=== PATIENT | female | born 1945 | race Caucasian/White ===

== ENCOUNTER → 2016-08-02 | Outpatient (CLI) | payer MEDICARE ==
[~2016-08-02] MED LIST: ASPI325T PO; ENAL5TAB98 PO; GLUCTAB PO; Glucometer; LIPI20TA PO; MECL-62 PO
[2016-08-02 13:59] LABS: BLOOD, URINE NEG (NEG); GLUCOSE,URINE NEG (NEG); KETONE, URINE 10 mg/dL (NEG); NITRITE,URINE NEG (NEG); SQUAMOUS EPITHELIAL CELL URINE <1 /hpf (0-5); URINE COLOR YELLOW (YELLW/STRAW)
[2016-08-02 14:00] LABS: COMMENT (UR) CULT NOT INDICATED; CULTURE IF INDICATED CULT NOT INDICATED
[2016-08-02 14:05] LABS: ALT (GPT) 33 U/L (10-53); ANION GAP 9 MEQ/L (5-15); AST (GOT) 24 U/L (15-37); BICARBONATE 28.9 MEQ/L (21.0-32.0); BLOOD UREA NITROGEN 14 MG/DL (7-18); CHLORIDE 99 MEQ/L (98-107); GLOMERULAR FILTRATION RATE 70 ML/MIN (>89); GLUCOSE,FASTING 156 MG/DL (74-99); POTASSIUM 4.2 MEQ/L (3.5-5.1); SODIUM (NA) 137 MEQ/L (136-145)
[2016-08-02 14:20] LABS: MICRO ALBUMIN RANDOM URINE RAW 39.2 MG/L (0.0-30.0)
[2016-08-02 14:29] LABS: HEMOGLOBIN A1a 1.3 %; HEMOGLOBIN Ao 82.3 %; HEMOGLOBIN F 1.8 %; HEMOGLOBIN LA1C 2.3 %; HEMOGLOBIN P3 3.8 %
[2016-08-02 14:30] LABS: ALKALINE PHOSPHATASE 81 U/L (45-117); FREE T3 2.74 PG/ML (2.18-3.98); HDL CHOLESTEROL 63.4 MG/DL (40.0-60.0); LDL CHOLESTEROL 149 MG/DL (0-99); THYROXINE (T4) 8.7 MCG/DL (4.8-13.9); TOTAL BILIRUBIN ADULT 0.7 MG/DL (0.2-1.0)
[2016-08-06 03:49] LABS: THYROGLOB ABS LESS THAN 1 IU/mL (< OR = 1)
== END ==
LOC: PLAB 08:34
PROVIDERS: ATTEND Family Medicine
DX: E11.9 Type 2 diabetes mellitus without complications (principal); R53.83 Other fatigue
CPT/HCPCS: 36415; 80053; 80061; 81001; 82043; 82607; 82652; 82747; 83036; 84436; 84443; 84481; 86376; 86800

== ENCOUNTER → 2017-02-27 | Outpatient (CLI) | payer MEDICARE ==
[2017-02-27 09:56] LABS: HEMOGLOBIN A1a 1.7 %; HEMOGLOBIN Ao 81.6 %; HEMOGLOBIN F 1.8 %; HEMOGLOBIN LA1C 2.3 %
[2017-02-27 10:01] LABS: BLOOD, URINE NEG (NEG); COMMENT (UR) CULT NOT INDICATED; CULTURE IF INDICATED CULT NOT INDICATED; GLUCOSE,URINE NEG (NEG); KETONE, URINE NEG (NEG); MUCUS URINE FEW /lpf (OCC); NITRITE,URINE NEG (NEG); SQUAMOUS EPITHELIAL CELL URINE <1 /hpf (0-5); URINE COLOR YELLOW (YELLW/STRAW)
[2017-02-27 10:20] LABS: ANION GAP 4 MEQ/L (5-15); AST (GOT) 30 U/L (15-37); BICARBONATE 29.6 MEQ/L (21.0-32.0); BLOOD UREA NITROGEN 12 MG/DL (7-18); CHLORIDE 99 MEQ/L (98-107); GLUCOSE,FASTING 165 MG/DL (74-99); POTASSIUM 4.5 MEQ/L (3.5-5.1); SODIUM (NA) 133 MEQ/L (136-145)
[2017-02-27 10:21] LABS: MICRO ALBUMIN RANDOM URINE RAW 49.1 MG/L (0.0-30.0)
[2017-02-27 10:45] LABS: ALKALINE PHOSPHATASE 95 U/L (45-117); ALT (GPT) 37 U/L (10-53); FREE T3 3.11 PG/ML (2.18-3.98); FREE T4 1.06 NG/DL (0.76-1.46); GLOMERULAR FILTRATION RATE 78 ML/MIN (>89); HDL CHOLESTEROL 58.7 MG/DL (40.0-60.0); LDL CHOLESTEROL 142 MG/DL (0-99); TOTAL BILIRUBIN ADULT 0.6 MG/DL (0.2-1.0)
== END ==
LOC: PLAB 07:12
PROVIDERS: ATTEND Family Medicine
DX: E11.9 Type 2 diabetes mellitus without complications (principal); R53.83 Other fatigue
CPT/HCPCS: 36415; 80053; 80061; 81001; 82043; 82607; 83036; 84439; 84443; 84481

== ENCOUNTER 2017-07-08 15:00 | Observation (INO) | payer MEDICARE ==
[~2017-07-08] VITALS: Ht 162.6 cm; Wt 73.0 kg
[2017-07-08] VITALS (9 sets, daily range): BP systolic 105–155; BP diastolic 60–72; PULSE 72–84; RESP 16–20; TEMP 96.8–97.8; O2SAT 94–99
[2017-07-08] MEDS ORDERED: ACETAMINOPHEN/HYDROcodone 325 MG/5 MG TAB PO ONE (15:15)
--- NOTE | 2017-07-08 15:18 | PD ---
HPI Chief Complaint: Fall, shoulder pain Time Seen by Provider: 15:08 Travel History International Travel<30 days: No Contact w/Intl Traveler<30days: No History of Present Illness HPI Patient is a 72-year-old female who comes in complaining of right shoulder pain after fall. She says she tripped and fell over a garden hose about an hour prior to arrival. She says she hit the right side of her head as well as her right shoulder. She was able to get herself up and walk around after the fall. She denies any loss of consciousness. She says she was in her normal state of health prior to the event. She denies any chest pain or shortness of breath. She did not take anything for pain prior to coming in. Any movement makes the pain into her shoulder worse. Severity is moderate. PFSH Past Medical History Arthritis: No Asthma: No Autoimmune Disease: No Anxiety: Yes Heart Rhythm Problems: No Cancer: Yes (BREAST) Cardiovascular Problems: No High Cholesterol: No Chemotherapy: No Chest Pain: No Congestive Heart Failure: No COPD: No Cerebrovascular Accident: No Diabetes: Yes Endocrine: Yes GERD: No Genitourinary: No Headaches: No Hepatitis: No Hiatal Hernia: No Hypertension: Yes Immune Disorder: No Kidney Stones: No Musculoskeletal: No Neurologic: No Psychiatric: No Reproductive: No Respiratory: No Migraines: No Myocardial Infarction: No Radiation Therapy: No Renal Failure: No Seizures: No Sleep Apnea: No Thyroid Disease: No Ulcer: No Tubal Ligation: Yes Past Surgical History Abdominal Surgery: No Appendectomy: No Cardiac Surgery: No Cholecystectomy: No Endocrine Surgery: No Eye Surgery: No Genitourinary Surgery: No Gynecologic Surgery: No Mastectomy: Yes (BILATERAL) Oral Surgery: No Thoracic Surgery: No Tonsillectomy: Yes Social History Alcohol Use: Yes (SEVERAL GLASSES OF WINE DAILY) Tobacco Use: No Substance Use: No Allergies-Medications (Allergen,Severity, Reaction): Coded Allergies: No Known Allergies (Verified , 08/03/11) Reported Meds & Prescriptions Reported Meds & Active Scripts Active Reported [bp med] 1 Tab PO DAILY Symbicort Inh (Budesonide/Formoterol Fumarate) 160-4.5 Mcg/Act Aero 2 Puff INH DAILY Prozac (Fluoxetine HCl) 20 Mg Cap 20 Mg PO DAILY Ranitidine (Ranitidine HCl) 150 Mg Cap 150 Mg PO BID Metformin (Metformin HCl) 500 Mg Tab 500 Mg PO BIDPC Aspirin 81 Mg Chew 81 Mg CHEW DAILY Review of Systems Except as stated in HPI: all other systems reviewed are Neg General / Constitutional: No: Fever, Chills HENT: Positive: Headaches, No: Lightheadedness Cardiovascular: No: Chest Pain or Discomfort, Syncope Respiratory: No: Shortness of Breath Gastrointestinal: No: Nausea, Vomiting Musculoskeletal: Positive: Limited ROM, Pain Skin: No Change in Pigmentation Neurologic: No: Weakness, Dizziness, Syncope Physical Exam Narrative GENERAL: Awake and alert, no acute distress. SKIN: Focused skin assessment warm/dry. No wounds or signs of infection. HEAD: Atraumatic. Normocephalic. EYES: Pupils equal and round. No scleral icterus. Extraocular movements intact. ENT: Mucous membranes pink and moist. NECK: Trachea midline. No JVD. No cervical spine tenderness. CARDIOVASCULAR: Regular rate and rhythm. No murmur appreciated. RESPIRATORY: No accessory muscle use. Clear to auscultation. Breath sounds equal bilaterally. GASTROINTESTINAL: Abdomen soft, non-tender, nondistended. MUSCULOSKELETAL: No clubbing. No cyanosis. Swelling and pain to the mid shaft of the right humerus. Radial pulse intact. Mild tenderness to palpation of the right hip. Full range of motion of the knee. NEUROLOGICAL: Awake and alert. No obvious cranial nerve deficits. Motor grossly within normal limits. Normal speech. PSYCHIATRIC: Appropriate mood and affect; insight and judgment normal. Data Data Last Documented VS Vital Signs Date Time Temp Pulse Resp B/P (MAP) Pulse Ox O2 Delivery O2 Flow Rate FiO2 07/08/17 19:00 99 Nasal Cannula 3.00 07/08/17 18:51 79 16 125/72 (89) 07/08/17 15:[address] Brain W/O Iv Contrast(Rout) (07/08/17 ) Ct Cerv Spine W/O Contrast (07/08/17 ) Acetamin-Hydrocod 325-5 Mg ([place] 5-325 (07/08/17 15:15) Hip, Uni(Ap&Lat) W Ap Pelvis (07/08/17 ) Shoulder, Limited(2vws) (07/08/17 ) Humerus, One View (07/08/17 ) Sling And Swathe (07/08/17 ) Electrocardiogram (07/08/17 18:11) Basic Metabolic Panel (Bmp) (07/08/17 18:11) Complete Blood Count With Diff (07/08/17 18:11) Prothrombin Time / Inr (Pt) (07/08/17 18:11) Act Partial Throm Time (Ptt) (07/08/17 18:11) Ecg Monitoring (07/08/17 18:11) Iv Access Insert/Monitor (07/08/17 18:11) Oximetry (07/08/17 18:11) Oxygen Administration (07/08/17 18:11) Sodium Chloride 0.9% Flush (Ns Flush) (07/08/17 18:15) Type And Screen (07/08/17 18:11) Morphine Inj (Morphine Inj) (07/08/17 18:15) Ondansetron Inj (Zofran Inj) (07/08/17 18:15) (Hub Use Only)Inp Phy Cons/Ref (07/08/17 ) Support Splint (07/08/17 18:25) ^ Splint (07/08/17 18:25) Consult Orthopedic (07/08/17 18:25) (Hub Use Only)Inp Phy Cons/Ref (07/08/17 ) Etomidate Inj (Amidate Inj) (07/08/17 19:00) Humerus, One View (07/08/17 ) Admit Order (Ed Use Only) (07/08/17 ) Place In Observation (07/08/17 ) Vital Signs (Adult) Q4H (07/08/17 19:43) Activity Oob With Assistance (07/08/17 19:43) Engineering Executive / Telemetry .CONTINUOUS (07/08/17 19:43) Diet Heart Healthy (07/09/17 Breakfast) Sodium Chloride 0.9% Flush (Ns Flush) (07/08/17 19:45) Sodium Chloride 0.9% Flush (Ns Flush) (07/08/17 21:00) Basic Metabolic Panel (Bmp) (07/09/17 06:00) Complete Blood Count With Diff (07/09/17 06:00) Pt Request For Service (07/08/17 19:43) Case Management Consult (07/08/17 19:43) Naloxone Inj (Narcan Inj) (07/08/17 19:45) Npo After Midnight W/ Po Meds (07/09/17 Breakfast) Labs Laboratory Tests Test 07/08/17 18:30 White Blood Count 14.7 TH/MM3 Red Blood Count 3.76 MIL/MM3 Hemoglobin 11.4 GM/DL Hematocrit 34.6 % Mean Corpuscular Volume 91.9 FL Mean Corpuscular Hemoglobin 30.3 PG Mean Corpuscular Hemoglobin Concent 33.0 % Red Cell Distribution Width 12.1 % Platelet Count 230 TH/MM3 Mean Platelet Volume 8.3 FL Neutrophils (%) (Auto) 84.4 % Lymphocytes (%) (Auto) 6.5 % Monocytes (%) (Auto) 8.5 % Eosinophils (%) (Auto) 0.3 % Basophils (%) (Auto) 0.3 % Neutrophils # (Auto) 12.5 TH/MM3 Lymphocytes # (Auto) 1.0 TH/MM3 Monocytes # (Auto) 1.2 TH/MM3 Eosinophils # (Auto) 0.0 TH/MM3 Basophils # (Auto) 0.0 TH/MM3 CBC Comment DIFF FINAL Differential Comment Prothrombin Time 10.7 SEC Prothromb Time International Ratio 1.1 RATIO Activated Partial Thromboplast Time 24.5 SEC Blood Urea Nitrogen 14 MG/DL Creatinine 0.74 MG/DL Random Glucose 222 MG/DL Calcium Level 8.3 MG/DL Sodium Level 132 MEQ/L Potassium Level 3.9 MEQ/L Chloride Level 96 MEQ/L Carbon Dioxide Level 25.8 MEQ/L Anion Gap 10 MEQ/L Estimat Glomerular Filtration Rate 77 ML/MIN MDM Medical Decision Making Medical Screen Exam Complete: Yes Emergency Medical Condition: Yes Medical Record Reviewed: Yes Differential Diagnosis humeral fracture vs head injury vs shoulder dislocation Narrative Course Patient is a 72 year old female who comes in complaining of right shoulder pain after a trip and fall. Exam shows tenderness and swelling to the right humerus. CT head and C-spine ordered. XR shoulder, humerus, hip ordered. Given [place] for pain. signed out to Dr. Lynn to follow up imaging and disposition the patient. Scripts Calcium Carbonate-Vitamin D (Calcium 600+D 200) 600-200 Mg-Unit Tab 1 TAB PO BID for Nutritional Supplement, #60 TAB 0 Refills Prov: Omar Castillo PA/Customer Experience Retail Clerk PA 07/09/17 Cholecalciferol (Vitamin D3) 2,000 Unit Cap 2000 UNITS PO DAILY for Nutritional Supplement, #60 CAP 0 Refills Prov: Omar Castillo PA/Customer Experience Retail Clerk PA 07/09/17 Ergocalciferol (Ergocalciferol) 50,000 Unit Cap 68279 UNITS PO Q7D for Nutritional Supplement, #8 CAP Prov: Omar Castillo/Customer Experience Retail Clerk PA 07/09/17 Hydrocodone-Acetaminophen (Hydrocodone-Acetaminophen) 10-325 mg Tab 1 TAB PO Q4H Y for PAIN, #60 TAB 0 Refills Prov: Omar Castillo/Customer Experience Retail Clerk PA 07/09/17 Gifty Linder MD Jul 08, 2017 15:18
[2017-07-08] MEDS ORDERED: METF500T PO (15:30)
[2017-07-08] MEDS ORDERED: ASPI-516 CHEW (15:30)
[2017-07-08] MEDS ORDERED: PROZ20CA11 PO (15:30)
[2017-07-08] MEDS ORDERED: SYMB160A INH (15:30)
[2017-07-08] MEDS ORDERED: bp med PO (15:30)
[2017-07-08] MEDS ORDERED: RANI150C PO (15:30)
--- NOTE | 2017-07-08 16:06 | RADRPT ---
EXAM DATE/TIME: 07/08/2017 15:38 [facility] COMPARISON: CT BRAIN W/O CONTRAST, August 03, 2011, 12:49. INDICATIONS : Fell and hit head. Right sided head pain. RADIATION DOSE: 62.73 CTDIvol (mGy) MEDICAL HISTORY : Hypertension. Chronic obstructive pulmonary disease. Carcinoma, breast.Diabetes. Anticoagulant therap y. SURGICAL HISTORY : Tonsillectomy. Mastectomy, bilateral.Tubal ligation. ENCOUNTER: Initial ACUITY: 1 day PAIN SCALE: 4/10 LOCATION: Right cranial TECHNIQUE: Multiple contiguous axial images were obtained of the head. Using automated exposure control and adj ustment of the mA and/or kV according to patient size, radiation dose was kept as low as reasonably a chievable to obtain optimal diagnostic quality images. DICOM format image data is available electro nically for review and comparison. FINDINGS: CEREBRUM: A small dystrophic calcification is seen involving the white matter of the left parietal lobe. This i s stable. Scattered periventricular low attenuation change involving both cerebral hemispheres most p ronounced within the parietal lobes. The ventricles are normal for age. No evidence of midline shift , mass lesion, hemorrhage or acute infarction. No extra-axial fluid collections are seen. POSTERIOR FOSSA: The cerebellum and brainstem are intact. The 4th ventricle is midline. The cerebellopontine angle i s unremarkable. EXTRACRANIAL: The visualized portion of the orbits is intact. SKULL: The calvaria is intact. No evidence of skull fracture. CONCLUSION: 1. No acute intracranial abnormality. 2. Chronic small vessel ischemic change. Davey Sterling Jr., MD on July 08, 2017 at 16:00 Board Certified Radiologist. This report was verified electronically.
--- NOTE | 2017-07-08 16:28 | RADRPT ---
EXAM DATE/TIME: 07/08/2017 15:38 [facility] COMPARISON: No previous studies available for comparison. INDICATIONS : Fell and hit head. Right sided neck pain. RADIATION DOSE: 26.02 CTDIvol (mGy) MEDICAL HISTORY : Hypertension. Chronic obstructive pulmonary disease. Carcinoma, breast.Diabetes. Anticoagulant therap y. SURGICAL HISTORY : Tonsillectomy. Mastectomy, bilateral.Tubal ligation. ENCOUNTER: Initial ACUITY: 1 day PAIN SCALE: 4/10 LOCATION: Right neck TECHNIQUE: Volumetric scanning of the cervical spine was performed. Multiplanar reconstructions in the sagittal, coronal and oblique axial planes were performed. Using automated exposure control and adjustment o f the mA and/or kV according to patient size, radiation dose was kept as low as reasonably achievable to obtain optimal diagnostic quality images. DICOM format image data is available electronically f or review and comparison. FINDINGS: VERTEBRAE: Normal vertebral body height. ALIGNMENT: No evidence of subluxation. C2-C3: A mild central bulge. No bone or the course of canal stenosis. Neural foramina are patent. C3-C4: Mild central bulge. No abutment of the cord or central canal stenosis. Prominent bony uncovertebral h ypertrophy on the right generates mild narrowing of the right neural foramen. The left is patent. C4-C5: No disc bulge or protrusion. Central canal is patent. Prominent bony uncovertebral hypertrophy genera matt moderate narrowing of the left neural foramen. The right remains patent. C5-C6: A broad-based disc osteophyte complex narrows the left lateral recess. Central canal remains patent. Bony uncovertebral hypertrophy generates significant narrowing of the left neural foramen and mild na rrowing of the right. C6-C7: The bony spinal canal is normal in size. No evidence of disc bulge or herniation. The neural forami na are bilaterally patent. C7-T1: The bony spinal canal is normal in size. No evidence of disc bulge or herniation. The neural forami na are bilaterally patent. CONCLUSION: 1. No fracture or dislocation. 2. Multilevel degenerative changes as detailed above. Davey Sterling Jr., MD on July 08, 2017 at 16:22 Board Certified Radiologist. This report was verified electronically.
--- NOTE | 2017-07-08 16:34 | RADRPT ---
EXAM DATE/TIME: 07/08/2017 16:03 [facility] COMPARISON: No previous studies available for comparison. INDICATIONS : Right shoulder pain after falling today. MEDICAL HISTORY : Hypertension. Chronic obstructive pulmonary disease. Carcinoma, breast. Diabetes. SURGICAL HISTORY : Tonsillectomy. Mastectomy, bilateral.Tubal ligation. ENCOUNTER: Initial ACUITY: 1 day PAIN SCORE: 10/10 LOCATION: Right humerus. FINDINGS: 2 views of the right shoulder reveal an acute comminuted fracture involving the proximal humeral diap hysis. The glenohumeral joint and acromioclavicular joint are unremarkable. Scapula and clavicle are intact. CONCLUSION: 1. Acute comminuted proximal humeral fracture. Davey Sterling Jr., MD on July 08, 2017 at 16:30 Board Certified Radiologist. This report was verified electronically.
--- NOTE | 2017-07-08 16:34 | RADRPT ---
EXAM DATE/TIME: 07/08/2017 16:03 [facility] COMPARISON: No previous studies available for comparison. INDICATIONS : Right humerus pain after falling today. MEDICAL HISTORY : Hypertension. Chronic obstructive pulmonary disease. Carcinoma, breast. Diabetes. SURGICAL HISTORY : Tonsillectomy. Mastectomy, bilateral.Tubal ligation. ENCOUNTER: Initial ACUITY: 1 day PAIN SCORE: 10/10 LOCATION: Left humerus. FINDINGS: A single view of the humerus reveals a comminuted proximal humeral diaphyseal fracture. There is 3 cm of posterior lateral displacement of the main distal fracture fragment relative to the main proximal fracture fragment. A total of 6 fracture fragments observed. CONCLUSION: Acute proximal humeral diaphyseal fracture that is comminuted as detailed above. Davey Sterling Jr., MD on July 08, 2017 at 16:31 Board Certified Radiologist. This report was verified electronically.
--- NOTE | 2017-07-08 16:35 | RADRPT ---
EXAM DATE/TIME: 07/08/2017 16:03 [facility] COMPARISON: No previous studies available for comparison. INDICATIONS : Right hip pain after falling today. MEDICAL HISTORY : Hypertension. Chronic obstructive pulmonary disease. Carcinoma, breast. Diabetes. SURGICAL HISTORY : Tonsillectomy. Mastectomy, bilateral.Tubal ligation. ENCOUNTER: Initial ACUITY: 1 day PAIN SCORE: 4/10 LOCATION: Right hip. FINDINGS: 3 views of the pelvis and right hip show joint space narrowing with periarticular sclerotic change an d osteophyte production involving both hips. No femoral head flattening or subchondral geode formatio n. No fracture or dislocation. Soft tissues are unremarkable. CONCLUSION: 1. No acute abnormality. Davey Sterling Jr., MD on July 08, 2017 at 16:32 Board Certified Radiologist. This report was verified electronically.
--- NOTE | 2017-07-08 17:01 | PD ---
Data Data Last Documented VS Vital Signs Date Time Temp Pulse Resp B/P (MAP) Pulse Ox O2 Delivery O2 Flow Rate FiO2 07/08/17 18:51 79 16 125/72 (89) 95 Room Air 07/08/17 15:[address] Brain W/O Iv Contrast(Rout) (07/08/17 ) Ct Cerv Spine W/O Contrast (07/08/17 ) Acetamin-Hydrocod 325-5 Mg ([place] 5-325 (07/08/17 15:15) Hip, Uni(Ap&Lat) W Ap Pelvis (07/08/17 ) Shoulder, Limited(2vws) (07/08/17 ) Humerus, One View (07/08/17 ) Sling And Swathe (07/08/17 ) Electrocardiogram (07/08/17 18:11) Basic Metabolic Panel (Bmp) (07/08/17 18:11) Complete Blood Count With Diff (07/08/17 18:11) Prothrombin Time / Inr (Pt) (07/08/17 18:11) Act Partial Throm Time (Ptt) (07/08/17 18:11) Ecg Monitoring (07/08/17 18:11) Iv Access Insert/Monitor (07/08/17 18:11) Oximetry (07/08/17 18:11) Oxygen Administration (07/08/17 18:11) Sodium Chloride 0.9% Flush (Ns Flush) (07/08/17 18:15) Type And Screen (07/08/17 18:11) Morphine Inj (Morphine Inj) (07/08/17 18:15) Ondansetron Inj (Zofran Inj) (07/08/17 18:15) (Hub Use Only)Inp Phy Cons/Ref (07/08/17 ) Support Splint (07/08/17 18:25) ^ Splint (07/08/17 18:25) Consult Orthopedic (07/08/17 18:25) (Hub Use Only)Inp Phy Cons/Ref (07/08/17 ) Etomidate Inj (Amidate Inj) (07/08/17 19:00) Humerus, One View (07/08/17 ) Admit Order (Ed Use Only) (07/08/17 ) Place In Observation (07/08/17 ) Vital Signs (Adult) Q4H (07/08/17 19:43) Activity Oob With Assistance (07/08/17 19:43) Crane Man / Telemetry .CONTINUOUS (07/08/17 19:43) Diet Heart Healthy (07/09/17 Breakfast) Sodium Chloride 0.9% Flush (Ns Flush) (07/08/17 19:45) Sodium Chloride 0.9% Flush (Ns Flush) (07/08/17 21:00) Basic Metabolic Panel (Bmp) (07/09/17 06:00) Complete Blood Count With Diff (07/09/17 06:00) Pt Request For Service (07/08/17 19:43) Case Management Consult (07/08/17 19:43) Naloxone Inj (Narcan Inj) (07/08/17 19:45) Npo After Midnight W/ Po Meds (07/09/17 Breakfast) Labs Laboratory Tests Test 07/08/17 18:30 White Blood Count 14.7 TH/MM3 Red Blood Count 3.76 MIL/MM3 Hemoglobin 11.4 GM/DL Hematocrit 34.6 % Mean Corpuscular Volume 91.9 FL Mean Corpuscular Hemoglobin 30.3 PG Mean Corpuscular Hemoglobin Concent 33.0 % Red Cell Distribution Width 12.1 % Platelet Count 230 TH/MM3 Mean Platelet Volume 8.3 FL Neutrophils (%) (Auto) 84.4 % Lymphocytes (%) (Auto) 6.5 % Monocytes (%) (Auto) 8.5 % Eosinophils (%) (Auto) 0.3 % Basophils (%) (Auto) 0.3 % Neutrophils # (Auto) 12.5 TH/MM3 Lymphocytes # (Auto) 1.0 TH/MM3 Monocytes # (Auto) 1.2 TH/MM3 Eosinophils # (Auto) 0.0 TH/MM3 Basophils # (Auto) 0.0 TH/MM3 CBC Comment DIFF FINAL Differential Comment Prothrombin Time 10.7 SEC Prothromb Time International Ratio 1.1 RATIO Activated Partial Thromboplast Time 24.5 SEC Blood Urea Nitrogen 14 MG/DL Creatinine 0.74 MG/DL Random Glucose 222 MG/DL Calcium Level 8.3 MG/DL Sodium Level 132 MEQ/L Potassium Level 3.9 MEQ/L Chloride Level 96 MEQ/L Carbon Dioxide Level 25.8 MEQ/L Anion Gap 10 MEQ/L Estimat Glomerular Filtration Rate 77 ML/MIN [facility] Supervised Visit with ESTEBAN: No Narrative Course Patient CARE assume from Dr. Flores at 1600, this is a 72-year-old female presents to emergency department after mechanical trip and fall complaining of right upper arm pain, she also complains of pain in her right hip. A CT head and C-spine were negative. Patient's humerus view showed a midshaft comminuted fracture which was 100% displaced. Pulses motor and sensory were intact distally. Patient's pain is relatively well under control with p.o. narcotics. She was offered additional pain medication and declined. Patient was discussed with Dr. Gasca we reviewed the films and is unsure about the patient's operative status. He states that at this point he would recommend the patient be given the option of splinting to follow-up outpatient versus observation status for orthopedic consultation. This was conveyed to the patient she would like to be admitted. This was re-conveyed to Dr. Gasca who would like Dr. Vicente to be consulted in the morning. Patient is also having some diaphoresis and I think this is secondary to pain and 9 offered her again some pain medication and she ultimately accepted 4 mg of morphine. Patient was sedated and reduced to the best of my ability which is not quite in anatomic alignment. She was placed in a coaptation splint and the sling and swath. She tolerated the procedure quite well pulse motor and sensory were intact after the reduction and while the patient does have some swelling compartments remain soft while in the emergency department Patient discussed with Dr. De La Fuente and will be observation status for the time being Procedures Procedure Narrative After informed consent written consent and all risks benefits complications and alternatives of both procedures were explained and all questions answered the patient consented to the following procedures PROCEDURAL SEDATION: The patient had a total of 5 minutes of sedation time using 10 mg of etomidate. Procedure in detail: After confirming the right patient right location timeout was performed patient was hooked up to cardiac, pulse oximetry, end- tidal CO2 waveform monitoring. [id number] and suction were in place at the bedside. Patient had successful induction, was amnesia to the events and had no hypoxia or apnea or hypotension or any other witnessed untoward event during the sedation. ORTHOPEDIC REDUCTION: Using standard traction countertraction method the patient was attempted to be reduced as much as possible, there certainly was crepitus, with minimal lengthening of the arm patient was placed in a coaptation splint, pulse motor and sensory were confirmed after sedation wore off and patient has no numbness and tingling, no limitation of muscle function and pulses were bounding in the radius and equal bilaterally. Diagnosis Primary Impression: Humerus fracture Additional Impression: Fall Admitting Information Admitting Physician Requests: Observation Condition: Stable Joesph Lynn MD Jul 08, 2017 17:01
[2017-07-08] MEDS ORDERED: SODIUM CHLORIDE 0.9% FLUSH 10 ML FLUSH IVF PRN (18:15)
[2017-07-08] MEDS ORDERED: MORPHINE SULFATE 2 MG/ML INJ IV PUSH ONE (18:15)
[2017-07-08] MEDS ORDERED: ONDANSETRON HCL 4 MG/2 ML VIAL IV PUSH ONE (18:15)
[2017-07-08] MEDS ORDERED: ETOMIDATE 20 MG/10 ML VIAL IV PUSH ONE ×2 (19:00→21:15)
[2017-07-08 19:01] LABS: AUTOMATED NEUTROPHIL # 12.5 TH/MM3 (1.8-7.7); BASOPHIL % 0.3 % (0.0-2.0); EOSINOPHIL % 0.3 % (0.0-4.0); HEMATOCRIT 34.6 % (35.0-46.0); HEMOGLOBIN 11.4 GM/DL (11.6-15.3); LYMPH % 6.5 % (9.0-44.0); MEAN CELL VOLUME 91.9 FL (80.0-100.0); MEAN CORPUSCULAR HEMOGLOBIN 30.3 PG (27.0-34.0); MEAN PLATELET VOLUME 8.3 FL (7.0-11.0); MONO % 8.5 % (0.0-8.0); MONOCYTE # 1.2 TH/MM3 (0-0.9); NEUT % 84.4 % (16.0-70.0); PLATELET COUNT 230 TH/MM3 (150-450); RED BLOOD COUNT 3.76 MIL/MM3 (4.00-5.30); RED CELL DISTRIBUTION WIDTH 12.1 % (11.6-17.2); WHITE BLOOD COUNT 14.7 TH/MM3 (4.0-11.0)
[2017-07-08 19:27] LABS: CALCIUM 8.3 MG/DL (8.5-10.1)
[2017-07-08 19:28] LABS: BICARBONATE 25.8 MEQ/L (21.0-32.0)
[2017-07-08 19:30] LABS: INTERNATIONAL NORMALIZED RATIO 1.1 RATIO; PROTHROMBIN TIME - PATIENT 10.7 SEC (9.8-11.6)
[2017-07-08 19:31] LABS: CREATININE 0.74 MG/DL (0.50-1.00)
[2017-07-08] MEDS ORDERED: NALOXONE HCL 0.4 MG/ML AMP IV PUSH PRN (19:45)
[2017-07-08] MEDS ORDERED: SODIUM CHLORIDE 0.9% FLUSH 10 ML FLUSH IV FLUSH PRN (19:45)
--- NOTE | 2017-07-08 19:59 | RADRPT ---
EXAM DATE/TIME: 07/08/2017 19:27 [facility] COMPARISON: HUMERUS RIGHT (1 VW), July 08, 2017, 16:03. INDICATIONS : Post reduction of the right humerus. MEDICAL HISTORY : Hypertension. Chronic obstructive pulmonary disease. Carcinoma, breast. Diabetes. SURGICAL HISTORY : Tonsillectomy. Mastectomy, bilateral.Tubal ligation. ENCOUNTER: Subsequent ACUITY: 1 day PAIN SCORE: 5/10 LOCATION: Right humerus. FINDINGS: Single view reveals some improvement in alignment of the displaced comminuted fracture proximal shaft right humerus. Overlying cast. No dislocation. CONCLUSION: 1. Slight improvement in alignment of a comminuted proximal right humeral shaft fracture. Tod Cuellar MD on July 08, 2017 at 19:56 Board Certified Radiologist. This report was verified electronically.
[2017-07-08] MEDS: SODIUM CHLORIDE 0.9% FLUSH 10 ML FLUSH IV FLUSH SCH (21:00)
[2017-07-08] MEDS ORDERED: LACTATED RINGER'S 1000 ML IV PRN (23:30)
[2017-07-08] MEDS ORDERED: CHLORHEXIDINE GLUCONATE 2 % 1 PACK (2 CLOTHS) TOPICAL PRN (23:30)
[2017-07-08] MEDS ORDERED: SODIUM CHLORID 0.9% 500 ML IV PRN (23:30)
[2017-07-08] MEDS ORDERED: POVIDONE IODINE 5% (ANTISEPSIS KIT) 4 APPLICATIONS EACH NARE PRN (23:30)
[2017-07-09] VITALS (9 sets, daily range): BP systolic 111–132; BP diastolic 55–70; PULSE 76–104; RESP 16–18; TEMP 96.7–98.2; O2SAT 92–95
[2017-07-09] MEDS ORDERED: ALPRAZolam 0.5 MG TAB PO ONE
[2017-07-09] MEDS: ACETAMINOPHEN/HYDROcodone 325 MG/5 MG TAB PO PRN ×2 (00:03→04:29)
[2017-07-09] MEDS ORDERED: GLUCAGON 1 MG/ML VIAL OTHER PRN (01:00)
[2017-07-09] MEDS ORDERED: DEXTROSE 50% IN WATER 50 ML VIAL(D50) IV PUSH PRN (01:00)
--- NOTE | 2017-07-09 01:14 | HHI.HP ---
HPI Service [facility] Primary Care Physician Holly Torres M.D. Admission Diagnosis Humerus fracture 2/2 Mechanical Fall. Diagnoses: Chief Complaint: RUE pain Travel History International Travel<30 Days: No Contact w/Intl Traveler <30 Da: No Traveled to Known Affected Are: No History of Present Illness 72 y/o female with a history of htn, dm, gerd, and anxiety presented to the ED after a trip and fall. Patient states she was out working in the yard and she tripped over a hose and rocks and fell on her right arm. She states the pain is an intermittent throbbing pain, 8/10 in her RUE, with no radiation or associated symptoms. She states the [place] helps but does not fully take away the pain. She is very anxious about possible surgery and is having a hard time relaxing to sleep. She denies any chest pain, sob, or dizziness prior to the fall. She denies hitting her head. Review of Systems Except as stated in HPI: all other systems reviewed are Neg Past Family Social History Past Medical History HTN DM COPD Anxiety Gerd Past Surgical History Tubal ligation Tonsillectomy Reported Medications Reported Meds & Active Scripts Active Reported [bp med] 1 Tab PO DAILY Symbicort Inh (Budesonide/Formoterol Fumarate) 160-4.5 Mcg/Act Aero 2 Puff INH DAILY Prozac (Fluoxetine HCl) 20 Mg Cap 20 Mg PO DAILY Ranitidine (Ranitidine HCl) 150 Mg Cap 150 Mg PO BID Metformin (Metformin HCl) 500 Mg Tab 500 Mg PO BIDPC Aspirin 81 Mg Chew 81 Mg CHEW DAILY Allergies: Coded Allergies: No Known Allergies (Verified , 08/03/11) Active Ordered Medications Current Medications Medications (Trade) Dose Ordered Sig/Lyle Route Start Time Stop Time Status Last Admin (NS Flush) 2 ml UNSCH PRN IV FLUSH 07/08/17 19:45 (NS Flush) 2 ml BID IV FLUSH 07/08/17 21:00 07/08/17 21:00 (Narcan Inj) 0.4 mg UNSCH PRN IV PUSH 07/08/17 19:45 (Osceola 5-325 Mg) 1 tab Q4H PRN PO 07/08/17 19:45 07/09/17 00:03 Lactated Ringer's 1,000 ml @ 30 mls/hr Q24H PRN IV 07/08/17 23:30 07/11/17 23:29 Sodium Chloride 500 ml @ 30 mls/hr [id number] PRN IV 07/08/17 23:30 07/11/17 23:29 (Betadine 5% Antisepsis Kit) 1 applic COVER OPERATOR PRN EACH NARE 07/08/17 23:30 07/11/17 23:29 (Chlorhexidine 2% Cloth) 3 pack COVER OPERATOR PRN TOPICAL 07/08/17 23:30 07/11/17 23:29 (D50w (Vial) Inj) 50 ml UNSCH PRN IV PUSH 07/09/17 01:00 (Glucagon Inj) 1 mg UNSCH PRN OTHER 07/09/17 01:00 (NovoLOG SUPPLEMENTAL SCALE) 1 ACHS SLIDING SCALE SQ 07/09/17 08:00 Family History Patient denies any family history, no heart disease or cancer Social History Tobacco use: Denies Alcohol use: Wine occasionally Illicit drug use: Denies Physical Exam Vital Signs Vital Signs Date Time Temp Pulse Resp B/P (MAP) Pulse Ox O2 Delivery O2 Flow Rate FiO2 07/08/17 22:28 89 16 122/62 (82) 95 07/08/17 20:26 82 16 121/66 (84) 94 Room Air 07/08/17 19:58 95 Room Air 07/08/17 18:51 79 16 125/72 (89) 95 Room Air 07/08/17 18:46 97 Room Air 07/08/17 18:46 72 18 105/68 (80) Room Air 07/08/17 17:05 79 18 124/60 (81) 97 Room Air 07/08/17 15:00 97.8 84 20 155/70 (98) Physical Exam GENERAL: This is a well-nourished, well-developed patient, who is anxious and in pain. SKIN: No rashes, ecchymoses or lesions. Cool and dry. RUE in splint and sling. HEAD: Atraumatic. Normocephalic. EYES: Pupils equal round and reactive. ENT: Nose without bleeding, purulent drainage or septal hematoma.Airway patent. NECK: Trachea midline. No JVD or lymphadenopathy. Supple, nontender, no meningeal signs. CARDIOVASCULAR: Regular rate and rhythm without murmurs, gallops, or rubs. RESPIRATORY: Clear to auscultation. Breath sounds equal bilaterally. No wheezes , rales, or rhonchi. GASTROINTESTINAL: Abdomen soft, non-tender, nondistended. MUSCULOSKELETAL: Right upper extremity tenderness and edema. No calf tenderness. NEUROLOGICAL: Awake and alert.Motor and sensory grossly within normal limits. Normal speech. Laboratory Laboratory Tests Test 07/08/17 18:30 White Blood Count 14.7 Red Blood Count 3.76 Hemoglobin 11.4 Hematocrit 34.6 Mean Corpuscular Volume 91.9 Mean Corpuscular Hemoglobin 30.3 Mean Corpuscular Hemoglobin Concent 33.0 Red Cell Distribution Width 12.1 Platelet Count 230 Mean Platelet Volume 8.3 Neutrophils (%) (Auto) 84.4 Lymphocytes (%) (Auto) 6.5 Monocytes (%) (Auto) 8.5 Eosinophils (%) (Auto) 0.3 Basophils (%) (Auto) 0.3 Neutrophils # (Auto) 12.5 Lymphocytes # (Auto) 1.0 Monocytes # (Auto) 1.2 Eosinophils # (Auto) 0.0 Basophils # (Auto) 0.0 CBC Comment DIFF FINAL Differential Comment Prothrombin Time 10.7 Prothromb Time International Ratio 1.1 Activated Partial Thromboplast Time 24.5 Blood Urea Nitrogen 14 Creatinine 0.74 Random Glucose 222 Calcium Level 8.3 Sodium Level 132 Potassium Level 3.9 Chloride Level 96 Carbon Dioxide Level 25.8 Anion Gap 10 Estimat Glomerular Filtration Rate 77 Result Diagram: 07/08/17 1830 07/08/17 183 Imaging Last Impressions Shoulder X-Ray 07/08/17 0000 Signed Impressions: Service Date/Time: Saturday, July 08, 2017 16:03 - CONCLUSION: 1. Acute comminuted proximal humeral fracture. Davey Sterling Jr., MD Humerus X-Ray 07/08/17 0000 Signed Impressions: Service Date/Time: Saturday, July 08, 2017 19:27 - CONCLUSION: 1. Slight improvement in alignment of a comminuted proximal right humeral shaft fracture. Tod Cuellar MD Hip and Pelvis X-Ray 07/08/17 0000 Signed Impressions: Service Date/Time: Saturday, July 08, 2017 16:03 - CONCLUSION: 1. No acute abnormality. Davey Sterling Jr., MD Head CT 07/08/17 0000 Signed Impressions: Service Date/Time: Saturday, July 08, 2017 15:38 - CONCLUSION: 1. No acute intracranial abnormality. 2. Chronic small vessel ischemic change. Davey Sterling Jr., MD Cervical Spine CT 07/08/17 0000 Signed Impressions: Service Date/Time: Saturday, July 08, 2017 15:38 - CONCLUSION: 1. No fracture or dislocation. 2. Multilevel degenerative changes as detailed above. MD Curly De La Cruz Jr. VTE Risk Assessment Caprini VTE Risk Assessment: No/Low Risk (score <= 1) Caprini Risk Assessment Model Point Value = 1 Point Value = 2 Point Value = 3 Point Value = 5 Age 41-60 Minor surgery BMI > 25 kg/m2 Swollen legs Varicose veins or History of unexplained or recurrent spontaneous Oral contraceptives or hormone replacement Sepsis (< 1 month) Serious lung disease, including pneumonia (< 1 month) Abnormal pulmonary function Acute myocardial infarction Congestive heart failure (< 1 month) History of inflammatory bowel disease Medical patient at bed rest Age 61-74 Arthroscopic surgery Major open surgery (> 45 min) Laparoscopic surgery (> 45 min) Malignancy Confined to bed (> 72 hours) Immobilizing plaster cast Central venous access Age >= 75 History of VTE Family history of VTE Factor V Leiden Prothrombin [id number] Lupus anticoagulant Anticardiolipin antibodies Elevated serum homocysteine Heparin-induced thrombocytopenia Other congenital or acquired thrombophilia Stroke (< 1 month) Elective arthroplasty Hip, pelvis, or leg fracture Acute spinal cord injury (< 1 month) Prophylaxis Regimen Total Risk Factor Score Risk Level Prophylaxis Regimen 0-1 Low Early ambulation 2 Moderate Order ONE of the following: *Sequential Compression Device (SCD) *Heparin 5000 units SQ BID 3-4 Higher Order ONE of the following medications: *Heparin 5000 units SQ TID *Enoxaparin/Lovenox 40 mg SQ daily (WT < 150 kg, CrCl > 30 mL/min) *Enoxaparin/Lovenox 30 mg SQ daily (WT < 150 kg, CrCl > 10-29 mL/min) *Enoxaparin/Lovenox 30 mg SQ BID (WT < 150 kg, CrCl > 30 mL/min) AND/OR *Sequential Compression Device (SCD) 5 or more Highest Order ONE of the following medications: *Heparin 5000 units SQ TID (Preferred with Epidurals) *Enoxaparin/Lovenox 40 mg SQ daily (WT < 150 kg, CrCl > 30 mL/min) *Enoxaparin/Lovenox 30 mg SQ daily (WT < 150 kg, CrCl > 10-29 mL/min) *Enoxaparin/Lovenox 30 mg SQ BID (WT < 150 kg, CrCl > 30 mL/min) AND *Sequential Compression Device (SCD) Assessment and Plan Problem List: (1) Humerus fracture ICD Code: S42.309A - Unspecified fracture of shaft of humerus, unspecified arm , initial encounter for closed fracture Status: Acute (2) Diabetes ICD Code: E11.9 - Type 2 diabetes mellitus without complications Status: Chronic (3) GERD (gastroesophageal reflux disease) ICD Code: K21.9 - Gastro-esophageal reflux disease without esophagitis Status: Chronic (4) COPD (chronic obstructive pulmonary disease) ICD Code: J44.9 - Chronic obstructive pulmonary disease, unspecified Status: Chronic Assessment and Plan 72 y/o female with a history of htn, dm, gerd, and anxiety presented to the ED after a trip and fall. Humerus Fracture Humerus x ray reviewed and shows an acute comminuted proximal humeral fracture -Consult Orthopedic: Dr. Vicente to evaluate patient in AM -Pain management with IV Morphine and PO [place] -Elevate and ICE PRN COPD, chronic -Resume home inhaler -Duonebs prn -Incentive spirometer Gerd, chronic -Protonix IV x 1 given -Resume home ranitidine DM, chronic -Hold home medication while in hospital -Accu checks with SSI DVT prophylaxis: SCDs Discussed Condition With Patient, RN and Dr. De La Fuente Problem Qualifiers (1) Humerus fracture: Qualified Codes: S42.351A - Displaced comminuted fracture of shaft of humerus, right arm, initial encounter for closed fracture (2) Diabetes: Qualified Codes: E11.9 - Type 2 diabetes mellitus without complications (3) GERD (gastroesophageal reflux disease): Qualified Codes: K21.9 - Gastro-esophageal reflux disease without esophagitis (4) COPD (chronic obstructive pulmonary disease): Qualified Codes: J44.9 - Chronic obstructive pulmonary disease, unspecified Francy Gardner Jul 09, 2017 01:14
[2017-07-09] MEDS ORDERED: MORPHINE SULFATE 2 MG/ML INJ IV PUSH PRN (01:30)
[2017-07-09] MEDS ORDERED: MELATONIN 5 MG TAB PO ONE (01:30)
[2017-07-09] MEDS ORDERED: PANTOPRAZOLE SODIUM 40 MG VIAL IV PUSH ONE (01:30)
--- NOTE | 2017-07-09 06:43 | PD.ORT.PN ---
Subjective Subjective Remarks s/p fall while working outside at home right arm pain. no other complaints. hx of COPD, breast cancer, lymph node removal right arm Objective Vitals Vital Signs Date Time Temp Pulse Resp B/P (MAP) Pulse Ox O2 Delivery O2 Flow Rate FiO2 07/09/17 04:55 96.9 77 18 117/61 (79) 94 07/08/17 23:10 96.8 74 17 106/61 (76) 94 07/08/17 22:28 89 16 122/62 (82) 95 07/08/17 20:26 82 16 121/66 (84) 94 Room Air 07/08/17 19:58 95 Room Air 07/08/17 19:00 99 Nasal Cannula 3.00 07/08/17 19:00 99 3.00 07/08/17 18:51 79 16 125/72 (89) 95 Room Air 07/08/17 18:46 97 Room Air 07/08/17 18:46 72 18 105/68 (80) Room Air 07/08/17 17:05 79 18 124/60 (81) 97 Room Air 07/08/17 15:00 97.8 84 20 155/70 (98) Result Diagram: 07/08/17 1830 07/08/17 1830 Other Results Laboratory Tests Test 07/08/17 18:30 Prothromb Time International Ratio 1.1 RATIO Prothrombin Time 10.7 SEC (9.8-11.6) Objective Remarks RUE: +coap splint. intact. full extension of wrist/fingers. full sensation to median/ulnar nerve distributions. Assessment & Plan Assessment and Plan 1) Right Humeral Shaft Fx -npo -consents -surgery this AM with Dr Cinthia Castillo,Omar HODGE/First Radha HODGE Jul 09, 2017 06:43
[2017-07-09] MEDS ORDERED: ENDO10TA8 PO (06:44)
[2017-07-09] MEDS ORDERED: CALCTAB19 PO (06:49)
[2017-07-09] MEDS ORDERED: VITA2000 PO (06:49)
[2017-07-09] MEDS ORDERED: HYDR-3583 PO (06:49)
[2017-07-09] MEDS ORDERED: VITA500012 PO (06:49)
--- NOTE | 2017-07-09 07:57 | MB ---
cc: LUCIANA OROURKE DATE OF CONSULTATION 07/09/2017 DATE OF ADMISSION 07/08/2017 REASON FOR CONSULTATION Comminuted right humerus fractures. CONSULTING PHYSICIAN Dr. De La Fuente ANNY Madsen is a 72-year-old female who had a fall. She describes a mechanical fall. She tripped over a hose. She was working out in her yard. She landed on her right arm. She had immediate right arm pain. She initially went to [facility] where x-rays revealed a complex right humerus fracture. She has been transferred to the [facility] for definitive treatment. She is currently awake and alert on the orthopedic floor. Her only complaint is her right arm. Pain is worse with movement and is improved with rest. She denies any dizziness, syncope or loss of consciousness. PAST MEDICAL HISTORY Illness: 1. Hypertension 2. Diabetes 3. COPD 4. Anxiety 5. Reflux SURGERIES 1. Tubal ligation 2. Tonsillectomy MEDICATIONS Medications include: 1. Symbicort 2. Prozac 3. Ranitidine 4. Metformin 5. Aspirin ALLERGIES NO KNOWN DRUG ALLERGIES. FAMILY HISTORY Noncontributory. The patient denies any history in the family of heart problems or problems with anesthesia. SOCIAL HISTORY The patient denies tobacco or drug use. She drinks occasional wine. REVIEW OF SYSTEMS The patient denies headache, visual changes, neck pain, chest pain, shortness of breath, abdominal pain, nausea, vomiting, recent weight loss, fever, chills or numbness or tingling of the extremities. She complains of right arm pain. Pain is worse with movement. LABORATORY DATA The patient has a white blood cell count of 14.7, hemoglobin of 11.4, hematocrit 34.6. INR is 1.1. BUN is 14, creatinine is 0.74. PHYSICAL EXAMINATION The patient is a pleasant 72-year female. She appears well-developed and well-nourished. She is awake and alert. She is alert and oriented x3. VITAL SIGNS: Temperature is 96.9, pulse 77, respirations 18, blood pressure is 117/61, O2 sat 94% on room air. HEAD: The patient is normocephalic. EYES, EARS, NOSE AND THROAT: Pupils are equal. NECK: Soft and nontender. Trachea is midline. ABDOMEN: Soft, nontender, and nondistended. EXTREMITIES: Examination of right arm reveals mild swelling around the shoulder and humerus. She has pain with any shoulder or elbow motion. Forearm compartments are soft. Radial pulse is palpable. She has intact sensation in all fingers. Radial pulses palpable. She is able to flex and extend her fingers. Examination of the left arm reveals no pain with shoulder, elbow or wrist motion. She has intact sensation in all fingers. She has good cap refill in all fingers. Skin is intact. Radial pulses palpable. Examination of the bilateral lower extremities reveals no pain with hip, knee or ankle motion. Skin is intact. Dorsalis pedis pulse is palpable. Sensation is intact in both feet. X-RAYS X-rays of the right humerus were reviewed. X-rays reveal a comminuted right humerus shaft fracture. Fracture extends up to the humeral neck. The glenohumeral joint is reduced. IMPRESSION 1. Hypertension 2. Diabetes 3. COPD 4. Right humeral neck fracture 5. Right humeral shaft fracture PLAN Treatment options were discussed with the patient. At this point, I would recommend open reduction, internal fixation of right humerus fractures. The risks of surgery include bleeding, infection, injury to arteries, nerves and blood vessels, nonunion, malunion, loss of motion of shoulder and elbow, injury to nerves resulting in weakness and numbness of hands, as well as medical complications associated the anesthesia. All questions were answered. I will plan on surgery today. A mid-level provider in my office, nurse practitioner or PA, may see this patient on a follow-up basis and continue to implement the objective of this plan including: Starting or adjusting medications, injections of muscle, tendon, bursa or joints, cast application, orthotic or brace application, physical therapy, further radiographic studies including x-ray, MRI, CT, ultrasounds or bone scan, vascular studies, neurologic studies, or other specialist consultations, and proceeding with surgical management as appropriate. MD JOSE G Perkins/ARELY /6:40 AM /7:40 AM
[2017-07-09 08:18] LABS: AUTOMATED NEUTROPHIL # 5.6 TH/MM3 (1.8-7.7); BASOPHIL % 0.4 % (0.0-2.0); EOSINOPHIL # 0.1 TH/MM3 (0-0.4); EOSINOPHIL % 1.3 % (0.0-4.0); HEMATOCRIT 30.5 % (35.0-46.0); HEMOGLOBIN 10.5 GM/DL (11.6-15.3); LYMPH % 12.6 % (9.0-44.0); MEAN CELL VOLUME 93.3 FL (80.0-100.0); MEAN CORPUSCULAR HEMOGLOBIN 32.1 PG (27.0-34.0); MEAN CORPUSCULAR HGB CONC 34.4 % (32.0-36.0); MEAN PLATELET VOLUME 8.3 FL (7.0-11.0); MONOCYTE # 0.9 TH/MM3 (0-0.9); NEUT % 73.7 % (16.0-70.0); PLATELET COUNT 208 TH/MM3 (150-450); RED BLOOD COUNT 3.27 MIL/MM3 (4.00-5.30); WHITE BLOOD COUNT 7.6 TH/MM3 (4.0-11.0)
[2017-07-09 08:47] LABS: BICARBONATE 26.5 MEQ/L (21.0-32.0); CALCIUM 8.5 MG/DL (8.5-10.1); CREATININE 0.91 MG/DL (0.50-1.00)
[2017-07-09] MEDS: BUDESONIDE-FORMOTEROL 160/4.5 MCG INHALER INH SCH (09:00)
[2017-07-09] MEDS ORDERED: GENTAMICIN SULFATE 80 MG/2 ML VIAL ONE (09:27)
[2017-07-09] MEDS ORDERED: ceFAZolin 2 GM PREMIX 50 ML ONE (09:27)
[2017-07-09] MEDS ORDERED: VANCOMYCIN HCL 1000 MG VIAL OTHER ONE (10:27)
--- NOTE | 2017-07-09 11:13 | PD.OP ---
cc: Evens Waggoner MD Operative Report Date of Surgery: Jul 09, 2017 Preoperative Diagnosis: Right humeral neck fracture, right humeral shaft fracture Postoperative Diagnosis: Procedure: Open reduction internal fixation right humeral neck fracture, open reduction total fixation right humeral shaft fracture Anesthesia: Gen. Surgeon: Evens Waggoner Chainstitch Elastic Attacher(s): CARLY Melo PA-C The surgical procedure was assisted by my physician insurance sales assistant. My P.A. presence was necessary throughout this case for the manipulation and positioning of the surgical extremity. My P.A. was assisting me throughout the duration of this procedure. The skill set of a physician insurance sales assistant was medically necessary to complete this procedure. During the surgical case the assembler surgical garment was working at the back table and the physician insurance sales assistant was directly assisting me. Operation and Findings: Patient was seen and evaluated preoperatively. Patient was found to have a displaced right proximal humerus fracture and a right humeral shaft fracture. The risks and benefits of surgical and nonsurgical options were discussed in detail and informed consent was obtained for surgery. Patient was brought to the operating room and placed on or table. IV sedation and GETA were administered by anesthesiologist. Antibiotics were given prior to incision. Operative arm and shoulder were prepped with alcohol followed by Hibiclens and draped usual sterile fashion. Timeout procedure was performed. Procedure began with a 8 inch incision over the anterior shoulder and arm. Cephalic vein was identified. A deltopectoral approach was utilized proximally. Distally the brachialis was split. The fracture was now visualized. Soft tissue was retracted. Attention was now turned to reduction of the humeral shaft fracture. There was comminution of the shaft fracture. Gentle traction was applied. The fracture fragments were carefully manipulated. Each piece was keyed into position. K wires were used to hold provisional fixation. Next attention was turned towards reduction of the humeral neck fracture. The humeral shaft was reduced to the humeral head. Fracture was manipulated to achieve excellent reduction. Multiplanar fluoroscopy confirmed well aligned fracture. Multiple K wires were used to hold provisional fixation. A long Synthes proximal humerus plate was selected to span all of the fractures. Plate was provisionally held in place K wires. Multiple 3.5 cortical screws were used to compress plate to bone. Fluoroscopy confirmed appropriate plate placement and fracture reduction. Multiple locking screws were now placed in the humeral head. Screws were predrilled and premeasured for appropriate length. Care was taken not to penetrate the articular surface. Additional screws were placed in the humeral shaft. Final fluoroscopy revealed well aligned fractures of the proximal humerus and humerus shaft with well-placed hardware. Wound was thoroughly irrigated. Fascia was closed with #1 Vicryl, subcutaneous tissues closed with 3-0 Vicryl, and skin was closed with vannesa. Sterile dressings were applied. Patient was placed into a sling. Patient was awakened and transferred to recovery in stable condition. Needle and sponge counts were correct. Evens Waggoner MD Jul 09, 2017 11:13
[2017-07-09] MEDS ORDERED: diphenhydrAMINE HCL 25 MG CAP PO PRN (11:15)
[2017-07-09] MEDS ORDERED: ERGOCALCIFEROL (VIT D2) 50,000 UNIT CAP PO SCH (11:15)
[2017-07-09] MEDS ORDERED: MORPHINE SULFATE 4 MG/ML INJ IV PUSH PRN (11:15)
[2017-07-09] MEDS ORDERED: ONDANSETRON HCL 4 MG/2 ML VIAL IVP PRN (11:15)
[2017-07-09] MEDS ORDERED: DO NOT ADM ANY ANTICOAGULANT DRUGS PRN (11:44)
[2017-07-09] MEDS ORDERED: *morphine SULFATE 10 MG/ML PERIprocedure ONLY ONE (11:51)
[2017-07-09] MEDS ORDERED: MIDAZOLAM HCL 2 MG/2 ML VIAL ONE (11:59)
[2017-07-09] MEDS: INSULIN ASPART SUPPLEMENTAL SCALE SQ SCH ×3 (12:00→20:49)
[2017-07-09] MEDS ORDERED: PROPOFOL 200 MG/20 ML AMP IV ONE (12:00)
[2017-07-09] MEDS ORDERED: LIDOCAINE HCL 1% PF 5 ML SYRINGE OTHER ONE (12:00)
[2017-07-09] MEDS ORDERED: NEOSTIGMINE 5 MG/5 ML SYRINGE IV PUSH ONE (12:00)
[2017-07-09] MEDS ORDERED: ESMOLOL HCL 100 MG/10 ML VIAL IV ONE (12:00)
[2017-07-09] MEDS ORDERED: ONDANSETRON HCL 4 MG/2 ML VIAL IV ONE (12:00)
[2017-07-09] MEDS ORDERED: PHENYLEPH/NS 1000 MCG/10 ML SYR IV ONE (12:00)
[2017-07-09] MEDS ORDERED: PHENYLEPHRINE HCL 10 MG/ML VIAL IV ONE (12:00)
[2017-07-09] MEDS ORDERED: ROCURONIUM INJ 50 MG/5 ML SYRINGE IV PUSH ONE (12:00)
[2017-07-09] MEDS ORDERED: GLYCOPYRROLATE 1 MG/5 ML SYRINGE IV PUSH ONE (12:00)
[2017-07-09] MEDS: FLUoxetine HCL 20 MG CAP PO SCH (14:24)
[2017-07-09] MEDS: CALCIUM/VITAMIN D 250 MG/125 U TAB PO SCH ×2 (14:24→17:18)
[2017-07-09] MEDS: SODIUM CHLORIDE 0.9% FLUSH 10 ML FLUSH IV FLUSH SCH ×2 (14:24→20:44)
[2017-07-09] MEDS: FAMOTIDINE 20 MG TAB PO SCH ×2 (14:24→20:42)
--- NOTE | 2017-07-09 15:07 | RADRPT ---
EXAM DATE/TIME: 07/09/2017 10:56 [facility] COMPARISON: No previous studies available for comparison. INDICATIONS : Reduction with screw and plate placement right humerus. MEDICAL HISTORY : Hypertension. Chronic obstructive pulmonary disease. Carcinoma, breast. Diabetes. SURGICAL HISTORY : Tonsillectomy. Mastectomy, bilateral.Tubal ligation. ENCOUNTER: Initial ACUITY: 2 days PAIN SCORE: Non-responsive. LOCATION: Right Humerus. FINDINGS: Plate with screws is seen bridging the fracture of the humerus. Alignment is anatomic in 2 projectio ns. CONCLUSION: Anatomic alignment. Josh Ramos MD FACR on July 09, 2017 at 15:04 Board Certified Radiologist. This report was verified electronically.
[2017-07-09] MEDS: RESP: ALBUTEROL 2.5 MG/IPRATROPIUM 0.5 MG NEB (PRN) NEB (16:27)
[2017-07-09] MEDS: ceFAZolin 2 GM PREMIX 50 ML IV SCH (17:17)
[2017-07-09] MEDS: DOCUSATE SODIUM 50 MG/SENNA 8.6 MG TAB PO SCH (20:42)
[2017-07-09] MEDS: VANCOMYCIN INJ 1,000 MG in SODIUM CHLOR 0.9% 250 ML INJ 250 ML IV SCH (20:54)
[2017-07-09] MEDS: ACETAMINOPHEN/HYDROcodone 325 MG/10 MG TAB PO PRN (21:08)
--- NOTE | 2017-07-09 21:48 | EKG ---
Date Performed: 07/08/2017 Time Performed: 18:46:34 PTAGE: 72 years EKG: Sinus rhythm RIGHT BUNDLE BRANCH BLOCK ABNORMAL ECG PREVIOUS TRACING : 08/03/2011 12.31 Since the prior tracing, there has been no significant alfred DOCTOR: Bruce Willams Interpretating Date/Time 07/09/2017 21:47:08
[2017-07-10] VITALS (9 sets, daily range): BP systolic 116–132; BP diastolic 57–61; PULSE 88–95; RESP 17–19; TEMP 96.8–97.8; O2SAT 92–97
[2017-07-10] MEDS: ACETAMINOPHEN/HYDROcodone 325 MG/10 MG TAB PO PRN ×3 (00:38→18:33)
[2017-07-10] MEDS: ceFAZolin 2 GM PREMIX 50 ML IV SCH ×2 (00:42→09:02)
[2017-07-10] MEDS: CALCIUM/VITAMIN D 250 MG/125 U TAB PO SCH ×3 (07:33→17:50)
[2017-07-10] MEDS: FLUoxetine HCL 20 MG CAP PO SCH (07:33)
[2017-07-10] MEDS: SODIUM CHLORIDE 0.9% FLUSH 10 ML FLUSH IV FLUSH SCH ×2 (07:33→21:08)
[2017-07-10] MEDS: CHOLECALCIFEROL (VIT D3) 1000 UNIT TAB PO SCH (07:33)
[2017-07-10] MEDS: FAMOTIDINE 20 MG TAB PO SCH ×2 (07:33→21:08)
[2017-07-10] MEDS: DOCUSATE SODIUM 50 MG/SENNA 8.6 MG TAB PO SCH ×2 (07:33→21:08)
[2017-07-10] MEDS: VANCOMYCIN INJ 1,000 MG in SODIUM CHLOR 0.9% 250 ML INJ 250 ML IV SCH (07:34)
[2017-07-10] MEDS: INSULIN ASPART SUPPLEMENTAL SCALE SQ SCH ×4 (07:34→21:09)
[2017-07-10] MEDS: RESP: ALBUTEROL 2.5 MG/IPRATROPIUM 0.5 MG NEB (PRN) NEB (08:13)
--- NOTE | 2017-07-10 09:29 | PD.ORT.PN ---
Subjective Subjective Remarks Comfortable with no new complaints Objective Vitals Vital Signs Date Time Temp Pulse Resp B/P (MAP) Pulse Ox O2 Delivery O2 Flow Rate FiO2 07/10/17 08:00 96.8 92 17 118/58 (78) 94 07/10/17 04:57 97.5 91 18 116/57 (76) 92 07/10/17 04:30 93 07/10/17 00:05 95 07/09/17 23:00 98.1 97 17 112/55 (74) 94 07/09/17 21:51 95 Nasal Cannula 2.00 07/09/17 20:00 95 07/09/17 19:13 96.7 100 17 118/56 (76) 94 07/09/17 16:37 18 07/09/17 16:00 96.7 104 16 132/62 (85) 93 07/09/17 14:42 95 Nasal Cannula 2.00 07/09/17 13:00 97.0 84 16 125/70 (88) 92 07/09/17 12:30 90 16 114/71 (85) 94 Nasal Cannula 2 07/09/17 12:15 90 16 127/61 (83) 95 Nasal Cannula 2 07/09/17 12:00 92 16 137/60 (85) 95 Nasal Cannula 2 07/09/17 11:44 97.8 90 16 142/70 (94) 96 Nasal Cannula 2 I/O 07/09/17 07/09/17 07/09/17 07/10/17 07/10/17 07/10/17 07:00 15:00 23:00 07:00 15:00 23:00 Intake Total 0 ml 50 ml 780 ml 530 ml Balance 0 ml 50 ml 780 ml 530 ml Intake Oral 0 ml 480 ml 480 ml IV Total 50 ml 300 ml 50 ml # Voids 1 4 4 # Bowel Movements 0 0 0 Result Diagram: 07/09/1772807/09/17728 Objective Remarks Right upper extremity: Thing dry dressings intact. Sling and swath in place. Distally intact sensation of the radial ulnar median nerve distributions with good capillary refills. Full extension and flexion of all fingers Assessment & Plan Assessment and Plan Right humeral shaft and proximal humerus fracture with open reduction internal fixation POD 1 Nonweightbearing right upper extremity Occupational therapy for pendulum swings and for education for them to continue to do pendulum swings at home Discharged home today if pain is controlled Home health for dressing changes and continue pendulum swings Follow-up Dr. Waggoner or PA in 2 weeks Chuckie Contreras Jr. Jul 10, 2017 09:29
--- NOTE | 2017-07-10 09:30 | HHI.FF ---
Face to Face Verification Diagnosis: (1) Humerus fracture Occupational Therapy Right UE Weight Bearing: Non WB Right UE Range of Motion: Pendular Nursing Dressing Changes: Daily dressing change, Xeroform, Coverderm/Primapore I have seen patient Tena Ferrera on 07/10/17. My clinical findings support the need for the requested home health care services because: Limited ability to care for self I certify that my clinical findings support that this patient is homebound because: Unsteady gait/balance Chuckie Contreras Jr. Jul 10, 2017 09:30
[2017-07-10] MEDS: BUDESONIDE-FORMOTEROL 160/4.5 MCG INHALER INH SCH (10:03)
--- NOTE | 2017-07-10 12:19 | HHI.PR ---
Subjective Remarks Follow up right humeral neck fracture 07/10/17-patient seen and examined; she was short of breath with episode of oxygen desaturation Objective Vitals Vital Signs Date Time Temp Pulse Resp B/P (MAP) Pulse Ox O2 Delivery O2 Flow Rate FiO2 07/10/17 12:10 97.8 95 19 122/60 (80) 94 07/10/17 08:11 96 Nasal Cannula 2.00 07/10/17 08:00 96.8 92 17 118/58 (78) 94 07/10/17 04:57 97.5 91 18 116/57 (76) 92 07/10/17 04:30 93 07/10/17 00:05 95 07/09/17 23:00 98.1 97 17 112/55 (74) 94 07/09/17 21:51 95 Nasal Cannula 2.00 07/09/17 20:00 95 07/09/17 19:13 96.7 100 17 118/56 (76) 94 07/09/17 16:37 18 07/09/17 16:00 96.7 104 16 132/62 (85) 93 07/09/17 14:42 95 Nasal Cannula 2.00 07/09/17 13:00 97.0 84 16 125/70 (88) 92 07/09/17 12:30 90 16 114/71 (85) 94 Nasal Cannula 2 I/O 07/09/17 07/09/17 07/09/17 07/10/17 07/10/17 07/10/17 07:00 15:00 23:00 07:00 15:00 23:00 Intake Total 0 ml 50 ml 780 ml 530 ml Balance 0 ml 50 ml 780 ml 530 ml Intake Oral 0 ml 480 ml 480 ml IV Total 50 ml 300 ml 50 ml # Voids 1 4 4 # Bowel Movements 0 0 0 Result Diagram: 07/09/17 0729 07/09/17 0729 Imaging Last Impressions Humerus X-Ray 07/09/17 0000 Signed Impressions: Service Date/Time: Sunday, July 09, 2017 10:56 - CONCLUSION: Anatomic alignment. Josh Ramos MD FACR Shoulder X-Ray 07/08/17 0000 Signed Impressions: Service Date/Time: Saturday, July 08, 2017 16:03 - CONCLUSION: 1. Acute comminuted proximal humeral fracture. Davey Sterling Jr., MD Hip and Pelvis X-Ray 07/08/17 0000 Signed Impressions: Service Date/Time: Saturday, July 08, 2017 16:03 - CONCLUSION: 1. No acute abnormality. Davey Sterling Jr., MD Head CT 07/08/17 0000 Signed Impressions: Service Date/Time: Saturday, July 08, 2017 15:38 - CONCLUSION: 1. No acute intracranial abnormality. 2. Chronic small vessel ischemic change. Davey Sterling Jr., MD Cervical Spine CT 07/08/17 0000 Signed Impressions: Service Date/Time: Saturday, July 08, 2017 15:38 - CONCLUSION: 1. No fracture or dislocation. 2. Multilevel degenerative changes as detailed above. Davey Sterling Jr., MD Objective Remarks GENERAL: NAD SKIN: Warm and dry. HEAD: Normocephalic. EYES: No scleral icterus. No injection or drainage. NECK: Supple, trachea midline. No JVD or lymphadenopathy. CARDIOVASCULAR: Regular rate and rhythm without murmurs, gallops, or rubs. RESPIRATORY: Breath sounds equal bilaterally. No accessory muscle use. GASTROINTESTINAL: Abdomen soft, non-tender, nondistended. MUSCULOSKELETAL: No cyanosis, or edema. RUE in sling-neurovascular intact BACK: Nontender without obvious deformity. No CVA tenderness. Procedures Open reduction internal fixation right humeral neck fracture, open reduction total fixation right humeral shaft fracture A/P Problem List: (1) Humerus fracture ICD Code: S42.309A - Unspecified fracture of shaft of humerus, unspecified arm , initial encounter for closed fracture Status: Acute (2) Diabetes ICD Code: E11.9 - Type 2 diabetes mellitus without complications Status: Chronic (3) GERD (gastroesophageal reflux disease) ICD Code: K21.9 - Gastro-esophageal reflux disease without esophagitis Status: Chronic (4) COPD (chronic obstructive pulmonary disease) ICD Code: J44.9 - Chronic obstructive pulmonary disease, unspecified Status: Chronic Assessment and Plan 72-year-old female with Humerus Fracture Humerus x ray reviewed and shows an acute comminuted proximal humeral fracture -s/p Open reduction internal fixation right humeral neck fracture, open reduction total fixation right humeral shaft fracture Management per orthopedic surgery COPD, chronic -2 new home inhaler -Duo nebs prn -Incentive spirometer Respiratory distress with hypoxemia Perform walk test Maintain oxygen saturation above 92% GERD -Continue home ranitidine DM, chronic -Resume home medication -Accu checks with SSI DVT prophylaxis: SCDs Discharge Planning Discharge patient to home Condition on discharge: Improved Regular Diet as tolerated Ad Maylin activity Rx written: see EMR Follow-up with primary care physician in 1week Orthopedic surgery in 2 weeks Problem Qualifiers (1) Humerus fracture: Qualified Codes: S42.351A - Displaced comminuted fracture of shaft of humerus, right arm, initial encounter for closed fracture (2) Diabetes: Qualified Codes: E11.9 - Type 2 diabetes mellitus without complications (3) GERD (gastroesophageal reflux disease): Qualified Codes: K21.9 - Gastro-esophageal reflux disease without esophagitis (4) COPD (chronic obstructive pulmonary disease): Qualified Codes: J44.9 - Chronic obstructive pulmonary disease, unspecified Hubert Lepe MD Jul 10, 2017 12:18
[2017-07-10] MEDS ORDERED: OXYGEN NAS.CANULA (13:28)
[2017-07-10] MEDS: metFORMIN HCL 500 MG TAB PO SCH (17:50)
[2017-07-11] VITALS: PULSE 90
[2017-07-11 00:30] VITALS: BP 140/83; PULSE 80; RESP 18; TEMP 98.4; O2SAT 97
[2017-07-11 05:00] VITALS: BP 120/60; PULSE 95; RESP 18; TEMP 98.1; O2SAT 97
[2017-07-11] MEDS: ACETAMINOPHEN/HYDROcodone 325 MG/10 MG TAB PO PRN ×2 (05:30→13:31)
[2017-07-11 08:00] VITALS: BP 117/55; PULSE 85; RESP 17; TEMP 97.3; O2SAT 96
[2017-07-11] MEDS: INSULIN ASPART SUPPLEMENTAL SCALE SQ SCH ×2 (08:00→12:00)
[2017-07-11] MEDS: CALCIUM/VITAMIN D 250 MG/125 U TAB PO SCH ×2 (09:00→13:00)
[2017-07-11] MEDS: SODIUM CHLORIDE 0.9% FLUSH 10 ML FLUSH IV FLUSH SCH (09:00)
[2017-07-11] MEDS: BUDESONIDE-FORMOTEROL 160/4.5 MCG INHALER INH SCH (09:00)
[2017-07-11] MEDS: metFORMIN HCL 500 MG TAB PO SCH (09:09)
[2017-07-11] MEDS: FAMOTIDINE 20 MG TAB PO SCH (09:09)
[2017-07-11] MEDS: DOCUSATE SODIUM 50 MG/SENNA 8.6 MG TAB PO SCH (09:09)
[2017-07-11] MEDS: FLUoxetine HCL 20 MG CAP PO SCH (09:09)
[2017-07-11] MEDS: CHOLECALCIFEROL (VIT D3) 1000 UNIT TAB PO SCH (09:09)
--- NOTE | 2017-07-11 09:30 | PD.ORT.PN ---
Subjective Subjective Remarks Comfortable with no new complaints Objective Vitals Vital Signs Date Time Temp Pulse Resp B/P (MAP) Pulse Ox O2 Delivery O2 Flow Rate FiO2 07/11/17 08:00 97.3 85 17 117/55 (75) 96 07/11/17 05:00 98.1 95 18 120/60 (80) 97 07/11/17 00:30 98.4 80 18 140/83 (102) 97 07/11/17 00:00 90 07/10/17 20:00 88 07/10/17 19:41 97 3.00 07/10/17 16:20 97.3 90 19 132/61 (84) 94 07/10/17 12:50 3.00 07/10/17 12:10 97.8 95 19 122/60 (80) 94 I/O 07/10/17 07/10/17 07/10/17 07/11/17 07/11/17 07/11/17 07:00 15:00 23:00 07:00 15:00 23:00 Intake Total 530 ml 970 ml 360 ml 480 ml 0 ml Balance 530 ml 970 ml 360 ml 480 ml 0 ml Intake Oral 480 ml 970 ml 360 ml 480 ml IV Total 50 ml 0 ml # Voids 4 8 4 4 # Bowel Movements 0 1 0 0 Result Diagram: 07/09/1772807/09/17728 Objective Remarks Right upper extremity: Clean dry dressings intact. Sling and swath in place. Distally intact sensation of the radial ulnar median nerve distributions with good capillary refills. Full extension and flexion of all fingers Assessment & Plan Assessment and Plan Right humeral shaft and proximal humerus fracture with open reduction internal fixation POD 2 Nonweightbearing right upper extremity Occupational therapy for pendulum swings and for education for them to continue to do pendulum swings at home Discharged home today if pain is controlled Home health for dressing changes and continue pendulum swings Follow-up Dr. Waggoner or [place] in 2 weeks Chuckie Contreras Jr. Jul 11, 2017 09:30
--- NOTE | 2017-07-11 10:17 | HHI.PR ---
Subjective Remarks Follow up right humeral neck fracture 07/10/17-patient seen and examined; she was short of breath with episode of oxygen desaturation 07/11/17-patient seen and examined, reports improvement of shortness of breath.Would like to stay 1 more day because states she is still weak Objective Vitals Vital Signs Date Time Temp Pulse Resp B/P (MAP) Pulse Ox O2 Delivery O2 Flow Rate FiO2 07/11/17 08:00 97.3 85 17 117/55 (75) 96 07/11/17 05:00 98.1 95 18 120/60 (80) 97 07/11/17 00:30 98.4 80 18 140/83 (102) 97 07/11/17 00:00 90 07/10/17 20:00 88 07/10/17 19:41 97 3.00 07/10/17 16:20 97.3 90 19 132/61 (84) 94 07/10/17 12:50 3.00 07/10/17 12:10 97.8 95 19 122/60 (80) 94 I/O 07/10/17 07/10/17 07/10/17 07/11/17 07/11/17 07/11/17 07:00 15:00 23:00 07:00 15:00 23:00 Intake Total 530 ml 970 ml 360 ml 480 ml 0 ml Balance 530 ml 970 ml 360 ml 480 ml 0 ml Intake Oral 480 ml 970 ml 360 ml 480 ml IV Total 50 ml 0 ml # Voids 4 8 4 4 # Bowel Movements 0 1 0 0 Result Diagram: 07/09/17 0729 07/09/17 0729 Objective Remarks GENERAL: NAD SKIN: Warm and dry. HEAD: Normocephalic. EYES: No scleral icterus. No injection or drainage. NECK: Supple, trachea midline. No JVD or lymphadenopathy. CARDIOVASCULAR: Regular rate and rhythm without murmurs, gallops, or rubs. RESPIRATORY: Breath sounds equal bilaterally. No accessory muscle use. GASTROINTESTINAL: Abdomen soft, non-tender, nondistended. MUSCULOSKELETAL: No cyanosis, or edema. RUE in sling-neurovascular intact BACK: Nontender without obvious deformity. No CVA tenderness. Procedures Open reduction internal fixation right humeral neck fracture, open reduction total fixation right humeral shaft fracture A/P Problem List: (1) Humerus fracture ICD Code: S42.309A - Unspecified fracture of shaft of humerus, unspecified arm , initial encounter for closed fracture Status: Acute (2) Diabetes ICD Code: E11.9 - Type 2 diabetes mellitus without complications Status: Chronic (3) GERD (gastroesophageal reflux disease) ICD Code: K21.9 - Gastro-esophageal reflux disease without esophagitis Status: Chronic (4) COPD (chronic obstructive pulmonary disease) ICD Code: J44.9 - Chronic obstructive pulmonary disease, unspecified Status: Chronic Assessment and Plan 72-year-old female with Humerus Fracture Humerus x ray reviewed and shows an acute comminuted proximal humeral fracture -s/p Open reduction internal fixation right humeral neck fracture, open reduction total fixation right humeral shaft fracture Management per orthopedic surgery, NWB RUE COPD, chronic -2 new home inhaler -Duo nebs prn -Incentive spirometer Respiratory distress with hypoxemia Will require oxygen on discharge Maintain oxygen saturation above 92% GERD -Continue home ranitidine DM, chronic -Resume home medication -Accu checks with SSI DVT prophylaxis: SCDs Discharge Planning Discharge patient to home Condition on discharge: Improved Regular Diet as tolerated Ad Maylin activity Rx written: see EMR Follow-up with primary care physician in 1week Orthopedic surgery in 2 weeks Problem Qualifiers (1) Humerus fracture: Qualified Codes: S42.351A - Displaced comminuted fracture of shaft of humerus, right arm, initial encounter for closed fracture (2) Diabetes: Qualified Codes: E11.9 - Type 2 diabetes mellitus without complications (3) GERD (gastroesophageal reflux disease): Qualified Codes: K21.9 - Gastro-esophageal reflux disease without esophagitis (4) COPD (chronic obstructive pulmonary disease): Qualified Codes: J44.9 - Chronic obstructive pulmonary disease, unspecified Hubert Lepe MD Jul 11, 2017 10:17
[2017-07-11 12:13] VITALS: BP 152/64; PULSE 88; RESP 18; TEMP 97.2; O2SAT 98
[2017-07-11] MEDS ORDERED: WALKER WHEELS/F1 MIS (13:02)
== END 2017-07-11 14:13 | disposition home or self-care (01) ==
LOC: PHED 15:00 → PHEDA 19:44 → N06B 23:11
PROVIDERS: ADMIT Hospitalist; ATTEND Hospitalist
DX: S42.351A Displaced comminuted fracture of shaft of humerus, right arm, initial encounter for closed fracture (principal); R09.02 Hypoxemia; I45.10 Unspecified right bundle-branch block; R94.31 Abnormal electrocardiogram [ECG] [EKG]; I10 Essential (primary) hypertension; E11.9 Type 2 diabetes mellitus without complications; J44.9 Chronic obstructive pulmonary disease, unspecified; K21.9 Gastro-esophageal reflux disease without esophagitis; F41.9 Anxiety disorder, unspecified; Z85.3 Personal history of malignant neoplasm of breast; Z79.82 Long term (current) use of aspirin; Z79.84 Long term (current) use of oral hypoglycemic drugs; W01.0XXA Fall on same level from slipping, tripping and stumbling without subsequent striking against object, initial encounter
CPT/HCPCS: 01630; 23615; 24505; 70450; 72125; 73030; 73060; 73502; 76000; 80048; 82948; 85025; 85610; 85730; 86850; 86900; 86901; 93005; 94150; 94618; 94640; 94664; 94770; 96365; 96366; 96367; 96372; 96374; 96375; 96376; 97110; 97116; 97161; 97166; 97530; 97535; 99285; C1713; C9113; G0378; J0690; J1580; J1815; J2250; J2270; J2370; J2405; J2710; J3010; J3370; J7050

== ENCOUNTER 2017-07-17 18:27 | Emergency (ER) | payer MEDICARE ==
[~2017-07-17] VITALS: Ht 162.6 cm; Wt 80.0 kg
[~2017-07-17 18:27] MED LIST changes: +ASPI-516 CHEW; -ASPI325T PO; +CALCTAB19 PO; -ENAL5TAB98 PO; -GLUCTAB PO; -Glucometer; +HYDR-3583 PO; -LIPI20TA PO; -MECL-62 PO; +METF500T PO; +OXYGEN NAS.CANULA; +PROZ20CA11 PO; +RANI150C PO; +SYMB160A INH; +VITA2000 PO; +VITA500012 PO; +WALKER WHEELS/F1 MIS; +bp med PO
[2017-07-17 18:29] VITALS: BP 154/116; PULSE 85; RESP 18; TEMP 98.7; O2SAT 98
[2017-07-17 21:38] VITALS: BP 157/69; PULSE 84; RESP 18; O2SAT 94
[2017-07-17] MEDS ORDERED: POLYETHYLENE GLYCOL 17 GM PKG PO ONE ×2 (21:45→23:15)
--- NOTE | 2017-07-17 21:45 | PD ---
HPI Chief Complaint: GI Complaint Time Seen by Provider: 21:25 Travel History International Travel<30 days: No Contact w/Intl Traveler<30days: No Traveled to known affect area: No History of Present Illness HPI 72-year-old white female presents to emergency Department with complaints of constipation. She states that she hasn't stooled in 9 days. She is status post ORIF a right humerus fracture. The patient states that she has not eating as much as she normally would eat. She denies any abdominal pain. She has been passing some gas. She denies any nausea, vomiting, dysuria, hematuria. She does note that she's had some increasing bruising on her right side. She states that she lives in a two-story building. She has not been able to upstairs to take a shower. She has home health care coming out on a daily basis. She is accompanied by her son. PFSH Past Medical History Arthritis: No Asthma: No Autoimmune Disease: No Anxiety: Yes Heart Rhythm Problems: No Cancer: Yes (BREAST) Cardiovascular Problems: Yes High Cholesterol: No Chemotherapy: No Chest Pain: No Congestive Heart Failure: No COPD: Yes Cerebrovascular Accident: No Diabetes: Yes Endocrine: Yes GERD: No Genitourinary: No Headaches: No Hepatitis: No Hiatal Hernia: No Hypertension: Yes Immune Disorder: No Kidney Stones: No Musculoskeletal: No Neurologic: No Psychiatric: No Reproductive: No Respiratory: Yes Migraines: No Myocardial Infarction: No Radiation Therapy: No Renal Failure: No Seizures: No Sleep Apnea: No Thyroid Disease: No Ulcer: No Tubal Ligation: Yes Past Surgical History Abdominal Surgery: No Appendectomy: No Cardiac Surgery: No Cholecystectomy: No Endocrine Surgery: No Eye Surgery: No Genitourinary Surgery: No Gynecologic Surgery: Yes (TUBAL) Mastectomy: Yes (BILATERAL) Oral Surgery: Yes (TONSILECTOMY) Thoracic Surgery: No Tonsillectomy: Yes Other Surgery: Yes (ORIF right humerus fracture) Social History Alcohol Use: Yes (SEVERAL GLASSES OF WINE DAILY) Tobacco Use: No Substance Use: No Allergies-Medications (Allergen,Severity, Reaction): Coded Allergies: No Known Allergies (Verified Adverse Reaction, Unknown, 07/17/17) Reported Meds & Prescriptions Reported Meds & Active Scripts Active Walker with Front Wheels (Device) 1 Mis Mis Ea .XX DIRECTED Oxygen (O2) (Miscellaneous Medication) Inha Liter OCTAVIANO.CANULA CONTINUOUS Oxygen Concentrator Portable Gaseous 2 L/min via Nasal Canula Continuous For 99 months Calcium 600+D 200 (Calcium Carbonate-Vitamin D) 600-200 Mg-Unit Tab 1 Tab PO BID Vitamin D3 (Cholecalciferol) 2,000 Unit Cap 2,000 Units PO DAILY Ergocalciferol 50,000 Unit Cap 50,000 Units PO Q7D Hydrocodone-Acetaminophen 10-325 mg Tab 1 Tab PO Q4H PRN Reported [bp med] 1 Tab PO DAILY Symbicort Inh (Budesonide/Formoterol Fumarate) 160-4.5 Mcg/Act Aero 2 Puff INH DAILY Prozac (Fluoxetine HCl) 20 Mg Cap 20 Mg PO DAILY Ranitidine (Ranitidine HCl) 150 Mg Cap 150 Mg PO BID Metformin (Metformin HCl) 500 Mg Tab 500 Mg PO BIDPC Aspirin 81 Mg Chew 81 Mg CHEW DAILY Review of Systems General / Constitutional: No: Fever Eyes: No: Visual changes HENT: No: Headaches Cardiovascular: No: Chest Pain or Discomfort Respiratory: No: Shortness of Breath Gastrointestinal: Positive: Constipation, No: Abdominal Pain Genitourinary: No: Dysuria Musculoskeletal: Positive: Arthralgias, Limited ROM, Pain Skin: Positive Rash (easy bruising) Neurologic: No: Weakness Psychiatric: No: Depression Endocrine: No: Polydipsia Hematologic/Lymphatic: No: Easy Bruising Physical Exam Narrative GENERAL: Well-developed, well-nourished in no apparent distress. Nontoxic appearing. Snehal of the nurses present during exam. HEAD: Normocephalic, atraumatic. EYES: Pupils equal round and reactive. Extraocular motions intact. No scleral icterus. No injection or drainage. ENT: Nose clear. Throat without erythema, tonsillar hypertrophy or exudate. Uvula midline. Airway patent. NECK: Trachea midline. Supple, nontender, moves head freely. No central bony tenderness or spasm. CARDIOVASCULAR: Regular rate and rhythm without murmurs, gallops, or rubs. RESPIRATORY: Clear to auscultation. Breath sounds equal bilaterally. No wheezes , rales, or rhonchi. GASTROINTESTINAL: Abdomen soft, non-tender, nondistended. No hepato-splenomegaly , or palpable masses. No guarding. EXTREMITIES: No clubbing, cyanosis, right upper extremity is in a sling.. BACK: Nontender without deformity. No flank tenderness. Rectal: There is not any large fecal impaction. A small amount of stool in the vault. NEUROLOGICAL: Awake, alert and oriented x 3 .Cranial nerves grossly intact. Motor and sensory grossly within normal limits. Normal speech. Skin: Patient has bruising to the left upper extremity, right flank, buttocks and lower leg. She has bruising to the upper forearms as well. Data Data Last Documented VS Vital Signs Date Time Temp Pulse Resp B/P (MAP) Pulse Ox O2 Delivery O2 Flow Rate FiO2 07/17/17 21:38 84 18 157/69 (98) 94 Room Air 07/17/17 18:29 98.7 Orders Orders Complete Blood Count With Diff (07/17/17 21:39) Basic Metabolic Panel (Bmp) (07/17/17 21:39) Prothrombin Time / Inr (Pt) (07/17/17 21:39) Abdomen, Flat & Upright (07/17/17 21:39) Polyethylene Glycol (Miralax) (07/17/17 21:45) Polyethylene Glycol (Miralax) (07/17/17 23:15) Labs Laboratory Tests Test 07/17/17 21:50 White Blood Count 8.2 TH/MM3 Red Blood Count 2.59 MIL/MM3 Hemoglobin 8.5 GM/DL Hematocrit 24.5 % Mean Corpuscular Volume 94.7 FL Mean Corpuscular Hemoglobin 32.7 PG Mean Corpuscular Hemoglobin Concent 34.5 % Red Cell Distribution Width 14.1 % Platelet Count 369 TH/MM3 Mean Platelet Volume 7.4 FL Neutrophils (%) (Auto) 74.5 % Lymphocytes (%) (Auto) 8.8 % Monocytes (%) (Auto) 14.6 % Eosinophils (%) (Auto) 1.8 % Basophils (%) (Auto) 0.3 % Neutrophils # (Auto) 6.1 TH/MM3 Lymphocytes # (Auto) 0.7 TH/MM3 Monocytes # (Auto) 1.2 TH/MM3 Eosinophils # (Auto) 0.1 TH/MM3 Basophils # (Auto) 0.0 TH/MM3 CBC Comment DIFF FINAL Differential Comment Prothrombin Time 10.9 SEC Prothromb Time International Ratio 1.1 RATIO Blood Urea Nitrogen 12 MG/DL Creatinine 0.67 MG/DL Random Glucose 145 MG/DL Calcium Level 8.6 MG/DL Sodium Level 130 MEQ/L Potassium Level 4.4 MEQ/L Chloride Level 92 MEQ/L Carbon Dioxide Level 31.1 MEQ/L Anion Gap 7 MEQ/L Estimat Glomerular Filtration Rate 86 ML/MIN [facility] Medical Decision Making Medical Screen Exam Complete: Yes Emergency Medical Condition: Yes Medical Record Reviewed: Yes Interpretation(s) Abdominal series: Increased stool but no obvious bowel obstruction. CBC & BMP Diagram 07/17/17 21:50 Calcium Level 8.6 Differential Diagnosis Differential diagnosis: Opiate-induced constipation, bowel obstruction, electrolyte abnormality, anemia Narrative Course Patient is resting comfortable. She is accompanied by her son. Her abdomen is soft nontender. Rectal exam does not reveal an impaction. She is given 2 doses of MiraLAX here in the ER and advised to do a bowel cleansing at home. She is to contact her primary care doctor as well as her orthopedist to identify them of her problem. She is made aware that she is anemic with a hemoglobin 8.5 that she needs to have this followed. This is opiate induced constipation, anemia Diagnosis Primary Impression: Opiate-induced constipation Additional Impression: Anemia Patient Instructions: General Instructions Additional Instructions: Rest. Increase fluids. Starting tomorrow morning drink 1 8 ounce glass of water with 1 cap of MiraLAX every hour for the first 2 hours. Then drinking half a bottle of magnesium citrate and a additional 8 ounce glass of water. One hour later drink a another glass of MiraLAX with 8 ounces of water. One hour after this drink the other half bottle of magnesium citrate with an additional 8 ounces of water. Then drank 1 glass of MiraLAX with 8 ounces of water every hour thereafter and to use start stooling. Follow-up with your medical doctor in next 1-2 days. Follow up with your orthopedist in the next 1-2 days. Return to the ER for emergencies. Disposition: 01 DISCHARGE HOME Condition: Stable Tod Catherine Jul 17, 2017 21:45
[2017-07-17 22:03] LABS: AUTOMATED NEUTROPHIL # 6.1 TH/MM3 (1.8-7.7); BASOPHIL % 0.3 % (0.0-2.0); EOSINOPHIL # 0.1 TH/MM3 (0-0.4); EOSINOPHIL % 1.8 % (0.0-4.0); HEMATOCRIT 24.5 % (35.0-46.0); HEMOGLOBIN 8.5 GM/DL (11.6-15.3); LYMPH % 8.8 % (9.0-44.0); LYMPHOCYTE # 0.7 TH/MM3 (1.0-4.8); MEAN CELL VOLUME 94.7 FL (80.0-100.0); MEAN CORPUSCULAR HEMOGLOBIN 32.7 PG (27.0-34.0); MEAN CORPUSCULAR HGB CONC 34.5 % (32.0-36.0); MEAN PLATELET VOLUME 7.4 FL (7.0-11.0); MONO % 14.6 % (0.0-8.0); MONOCYTE # 1.2 TH/MM3 (0-0.9); NEUT % 74.5 % (16.0-70.0); PLATELET COUNT 369 TH/MM3 (150-450); RED BLOOD COUNT 2.59 MIL/MM3 (4.00-5.30); RED CELL DISTRIBUTION WIDTH 14.1 % (11.6-17.2); WHITE BLOOD COUNT 8.2 TH/MM3 (4.0-11.0)
[2017-07-17 22:17] LABS: INTERNATIONAL NORMALIZED RATIO 1.1 RATIO; PROTHROMBIN TIME - PATIENT 10.9 SEC (9.8-11.6)
[2017-07-17 22:25] LABS: BICARBONATE 31.1 MEQ/L (21.0-32.0); CALCIUM 8.6 MG/DL (8.5-10.1); CREATININE 0.67 MG/DL (0.50-1.00)
--- NOTE | 2017-07-17 22:38 | RADRPT ---
EXAM DATE/TIME: 07/17/2017 22:22 [facility] COMPARISON: No previous studies available for comparison. INDICATIONS : Obstruction. MEDICAL HISTORY : Diabetes mellitus type II. Barretts Esophageal Disease. SURGICAL HISTORY : Tubal ligation. ENCOUNTER: Initial ACUITY: 1 week PAIN SCORE: 7/10 LOCATION: abdomen FINDINGS: Moderate amount of stool in the distal colon. More proximally, the colon is mildly distended measurin g up to 6.7 cm. There are no dilated loops of small bowel. No pneumatosis or free air. No abnormal ca lcifications. Degenerative spondylosis of the lower lumbar spine. Osseous structures are otherwise in tact. CONCLUSION: 1. Moderate amount of distal colonic stool with mildly distended more proximal colon. No small bowel dilatation. Findings may reflect constipation. Yassine Mancera MD on July 17, 2017 at 22:35 Board Certified Radiologist. This report was verified electronically.
== END 2017-07-17 23:55 | disposition home or self-care (01) ==
LOC: NEPD 18:27
DX: K59.03 Drug induced constipation (principal); T40.605A Adverse effect of unspecified narcotics, initial encounter; D64.9 Anemia, unspecified; E11.9 Type 2 diabetes mellitus without complications; I10 Essential (primary) hypertension; Z79.84 Long term (current) use of oral hypoglycemic drugs
CPT/HCPCS: 74019; 80048; 85025; 85610; 99284

== ENCOUNTER → 2017-08-26 | Outpatient (CLI) | payer MEDICARE ==
[2017-08-26 10:31] LABS: AUTOMATED NEUTROPHIL # 3.1 TH/MM3 (1.8-7.7); BASOPHIL % 0.4 % (0.0-2.0); EOSINOPHIL # 0.2 TH/MM3 (0-0.4); EOSINOPHIL % 4.5 % (0.0-4.0); HEMATOCRIT 37.9 % (35.0-46.0); HEMOGLOBIN 12.4 GM/DL (11.6-15.3); LYMPH % 19.1 % (9.0-44.0); MEAN CELL VOLUME 91.7 FL (80.0-100.0); MEAN CORPUSCULAR HGB CONC 32.7 % (32.0-36.0); MEAN PLATELET VOLUME 8.7 FL (7.0-11.0); MONO % 13.6 % (0.0-8.0); MONOCYTE # 0.7 TH/MM3 (0-0.9); NEUT % 62.4 % (16.0-70.0); PLATELET COUNT 292 TH/MM3 (150-450); RED BLOOD COUNT 4.13 MIL/MM3 (4.00-5.30); RED CELL DISTRIBUTION WIDTH 13.2 % (11.6-17.2)
[2017-08-26 10:48] LABS: CALCIUM 9.5 MG/DL (8.5-10.1)
[2017-08-26 10:49] LABS: BICARBONATE 26.3 MEQ/L (21.0-32.0)
[2017-08-26 10:52] LABS: CREATININE 0.71 MG/DL (0.50-1.00)
[2017-08-26 11:44] LABS: PROTHROMBIN TIME - PATIENT 10.6 SEC (9.8-11.6)
== END ==
LOC: PLAB 09:34
PROVIDERS: ATTEND Orthopaedic Surgery Orthopaedic Surgery of the Spine
DX: M25.50 Pain in unspecified joint (principal); S32.009A Unspecified fracture of unspecified lumbar vertebra, initial encounter for closed fracture; X58.XXXA Exposure to other specified factors, initial encounter
CPT/HCPCS: 36415; 80048; 85025; 85610; 85730

== ENCOUNTER → 2017-09-17 | Outpatient (CLI) | payer MEDICARE ==
[2017-09-17 19:13] LABS: CALCIUM 9.3 MG/DL (8.5-10.1)
[2017-09-17 19:17] LABS: PHOSPHORUS 2.8 MG/DL (2.5-4.9)
== END ==
LOC: PLAB 13:35
PROVIDERS: ATTEND Orthopaedic Surgery Orthopaedic Surgery of the Spine
DX: M81.8 Other osteoporosis without current pathological fracture (principal); M85.9 Disorder of bone density and structure, unspecified; E55.9 Vitamin D deficiency, unspecified
CPT/HCPCS: 36415; 82306; 82310; 84100

== ENCOUNTER → 2017-10-06 | Outpatient (CLI) | payer MEDICARE ==
[2017-10-06 14:14] LABS: AUTOMATED NEUTROPHIL # 3.2 TH/MM3 (1.8-7.7); BASOPHIL % 0.5 % (0.0-2.0); EOSINOPHIL # 0.2 TH/MM3 (0-0.4); EOSINOPHIL % 3.8 % (0.0-4.0); HEMATOCRIT 42.1 % (35.0-46.0); HEMOGLOBIN 14.1 GM/DL (11.6-15.3); LYMPH % 18.8 % (9.0-44.0); MEAN CELL VOLUME 90.6 FL (80.0-100.0); MEAN CORPUSCULAR HEMOGLOBIN 30.2 PG (27.0-34.0); MEAN CORPUSCULAR HGB CONC 33.4 % (32.0-36.0); MEAN PLATELET VOLUME 8.7 FL (7.0-11.0); MONOCYTE # 0.8 TH/MM3 (0-0.9); NEUT % 61.9 % (16.0-70.0); PLATELET COUNT 271 TH/MM3 (150-450); RED BLOOD COUNT 4.65 MIL/MM3 (4.00-5.30); RED CELL DISTRIBUTION WIDTH 14.9 % (11.6-17.2); WHITE BLOOD COUNT 5.1 TH/MM3 (4.0-11.0)
[2017-10-06 14:21] LABS: % SATURATION IRON PROFILE 14.4 % (20-50); IRON (FE) 62 MCG/DL (50-170); TOTAL IRON BINDING CAPACITY 431 MCG/DL (250-450)
[2017-10-06 14:26] LABS: FERRITIN 32 NG/ML (8-252)
== END ==
LOC: PLAB 08:48
PROVIDERS: ATTEND Physician Assistant Medical
DX: D50.9 Iron deficiency anemia, unspecified (principal)
CPT/HCPCS: 36415; 82728; 83540; 83550; 85025